=== PATIENT | male | born 1955 | race Caucasian/White ===

== ENCOUNTER 2021-09-01 07:58 | Outpatient (CLI) | payer MEDICARE, SELFPAY ==
--- NOTE | 2021-09-04 15:25 | WPDHOMESLEEP ---
Sleep Study - Home Unattended Date of Study: 09/01/21 Ordering Provider: Feroz Salcido APRN Interpreting Provider: Anette Ferrell MD Home Sleep Study Type: Watch PAT Height: 1.73 m Weight: 99.79 kg Body Mass Index: 33.4 Neck Circumference (inches): 20 Seltzer: 5 Reason for Sleep Study Loud snoring, witnessed apnea Sleep History Hal Tam is a 65 year old man with extremely loud snoring and witnessed apneas. He gasps for breath at night. He has a family history with a brother having the same problem. He rarely wakes up feeling short of breath. He does not awaken at night with heartburn, belching or coughing. He frequently has trouble sleeping with a cold. He frequently wakes up gasping for breath at night. He does not sweat excessively at night or notice his heart pounding or beating irregularly at night. He occasionally falls asleep during the day, never involuntarily and never while driving. He does not have loss of muscle tone with strong emotion. He does not have daytime difficulties due to excessive sleepiness. He does not feel paralyzed on waking or falling asleep. He does not have vivid dreamlike scenes upon awakening or falling asleep. He does not feel afraid to go to sleep. He rarely has nightmares. He frequently remembers his dreams. He occasionally has racing thoughts. He does not feel sad or depressed he rarely feels anxiety. He does not have muscular tension, does not notice parts of his body jerking and he does not kick at night. He does not have crawling and aching feelings in his legs. He does not have any kind of leg pain at night. He does not have morning jaw pain. He denies grinding his teeth during sleep. He is not bothered by pain day and during the day and is not awakened by pain during the night. He rarely wakes up feeling stiff in the morning. He does not wake up with sore achy muscles. He does not wake up with pain in the neck and spine. Hereports a 10 lb weight loss in the last year. Normal bedtime is 11:00 p.m. falling asleep within 10 minute waking twice at night to urinate. He returns to sleep within 5-10 minutes. These awakenings occur in the middle of the night. He wakes the morning by 7:00 a.m.. His weekend schedule is the same. He estimates getting 8 hours of sleep at night. He does not take naps in the afternoon or evening. A short 10 or 15 minute nap may be refreshing. Most of the time he feels good in the morning. He feels better in the morning compared to other times of day. Habits: Tobacco quit 1993, smoked a half a pack per day for 10 years. Caffeine: 1 cup of coffee and 1 tea daily. Infrequent alcohol. No recreational drugs. 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 Type 1 diabetes mellitus with diabetic polyneuropathy Family History Family History (Updated 09/04/21 @ 16:29 by Anette Ferrell MD) Mother Family history of diabetes mellitus in first degree relative Patient's mother is in good health Family history of arthritis Family history of dementia Sibling , 2 brothers on CPAP Family history of diabetes mellitus in first degree relative Family history of cardiovascular disease, Onset Age: 60 Sleep apnea Father Patient's father is in good health Family history of arthritis Social History Social History Smoking packs per day: 0.5 Smoking cigarettes per day: 10.0 Years smoked: 10 Smoking pack-years: 5.00 Tobacco type: cigarettes Second hand tobacco smoke exposure: No Smoking end date: 08/26/93 Alcohol intake: current Alcohol use details: rarely Medications Home Medications Medication Instructions Recorded Confirmed Type
[2021-09-04 15:32] VITALS: BMI 33.4
== END 2021-09-04 13:06 | disposition home or self-care (01) ==
PROVIDERS: PCP Internal Medicine; Visit Provider Nurse Practitioner Family
DX: G47.39 Other sleep apnea (principal); R06.83 Snoring
CPT/HCPCS: 95800

== ENCOUNTER 2021-12-15 08:55 | Outpatient (CLI) | payer MEDICARE, SELFPAY ==
--- NOTE | 2021-12-15 09:25 | ECG_ITS ---
Measurements Intervals [place] Rate: 62 P: 60 NM: 190 QRS: 17 QRSD: 100 T: 50 QT: 414 QTc: 421 Interpretive Statements SINUS RHYTHM NORMAL ECG NO PREVIOUS ECG AVAILABLE FOR COMPARISON Electronically Signed On 12-15-2021 15:23:43 CDT by Kedar Villavicencio M.D.
[2021-12-15 10:12] LABS: Free T4 Free Thyroxine 1.21 ng/mL (0.78-2.19)
[2021-12-15 11:43] LABS: Free T4 Free Thyroxine Reflex 1.24 ng/dL (0.78-2.19)
[2021-12-15 13:01] LABS: Total Triiodothyronine (T3) 0.99 NG/ML (0.97-1.69)
== END 2021-12-15 08:56 | disposition home or self-care (01) ==
LOC: ANHLAB 08:58
PROVIDERS: PCP Internal Medicine; Visit Provider Internal Medicine
DX: R79.89 Other specified abnormal findings of blood chemistry (principal); I10 Essential (primary) hypertension
CPT/HCPCS: 36415; 84439; 84443; 84480; 93005